=== PATIENT | male | born 1995 | race Caucasian/White ===

== ENCOUNTER → 2017-11-10 | Outpatient (CLI) | payer BC ==
--- NOTE | 2017-11-10 13:29 | Diagnostic Imaging Report ---
EXAMINATION: MRI of the brain with and without contrast HISTORY: Migraine headaches for the last 6 months COMPARISON: None. TECHNIQUE: Pre-contrast: Sagittal T2; axial T1-IR, T2, MPGR, DWI, FLAIR; Post-contrast: axial and coronal T1. Intravenous contrast: 16 mL of Gadavist. IMAGE QUALITY: Motion artifact limits evaluation of most of the sequences. FINDINGS: Parenchyma: 1. No abnormal signal intensity or enhancement. Questionable ill-defined linear enhancement in the left medial orbito-frontal gyri may represent a small DVA, motion artifact limits evaluation. No associated mass effect or abnormal signal in the underlying parenchyma. 2. No mass or hemorrhage. No acute or chronic vascular insult. Skull: No abnormal signal intensity or enhancement. Major arteries: Expected flow voids present. Dural sinuses: Expected flow voids present. Ventricles: No hydrocephalus or displacement. Subarachnoid spaces: No abnormal signal intensity or enhancement. Incidentally noted small retrocerebellar and left anterior temporal arachnoid cysts without mass effect. Brain volume: Normal for age. Foramen magnum: No mass, Chiari malformation, or basilar invagination. Sella: No gross mass. Paranasal/mastoid sinuses: Unremarkable. IMPRESSION: Suboptimal study due to motion, grossly no intracranial abnormalities to explain the patient's symptoms. Signed by: Dr. Ayesha Jiménez M.D. on 11/10/2017 1:26 PM
== END ==
LOC: MRI 11:21
PROVIDERS: ATTEND Student in an Organized Health Care Education/Training Program
DX: G43.009 Migraine without aura, not intractable, without status migrainosus (principal)
CPT/HCPCS: 70553